=== PATIENT | male | born 1965 | race Caucasian/White ===

== ENCOUNTER 2018-10-26 19:57 | Emergency (ER) | payer BC ==
[~2018-10-26] VITALS: Ht 172.7 cm; Wt 79.4 kg
== END 2018-10-26 22:28 | disposition home or self-care (01) ==
LOC: ER 19:57
DX: S93.601A Unspecified sprain of right foot, initial encounter (principal); W22.8XXA Striking against or struck by other objects, initial encounter; I10 Essential (primary) hypertension; F17.220 Nicotine dependence, chewing tobacco, uncomplicated
CPT/HCPCS: 73630; 99283-25